=== PATIENT | female | born 1995 | race Hispanic/Latino ===

== ENCOUNTER 2019-07-12 02:03 | Emergency (ER) | payer OTHER ==
[~2019-07-12] VITALS: Ht 167.6 cm; Wt 72.6 kg
--- OUTSIDE RECORDS SUMMARY | 2019-07-12 02:07 | XMS REPORT ---
Author Author [facility] Address Unknown Phone Unavailable Care Team Providers Care Community Engagement Leader Name Role Phone Unavailable Unavailable Payers Payer Name Policy Type Policy Number Effective Date Expiration Date Problems This patient has no known problems. Allergies, Adverse Reactions, Alerts Allergy Name Allergy Type Status Severity Reaction(s) Onset Date Inactive Date Treating Clinician Comments No Known Allergies DA Active U 2019-02-24 00:00:00 Medications This patient has no known medications. Encounters Start Date/Time End Date/Time Encounter Type Admission Type Attending [facility] Facility Care Department Encounter ID 2017-02-03 00:00:00 2017-02-03 00:00:00 [id number] Results Test Description Test Time Test Comments Text Results Atomic Results Result Comments - XR ANKLE 3 + V LT 2019-02-24 21:46:00 FAX: Nolan Hudson [phone] [place]: St: REG FAX: Rachid Rios MD [phone] Name: JALEN GOLDBERG [facility] [place] : 1995 Age/S: 23/F [address] [place] [address] Unit #: [id number] Loc: [place] [address] Phys: Nolan Emerson [employer] SCI[employer]IST Acct: [id number] Dis Date: Status: REG ER PHONE #: [phone] Exam Date: 02/24/20192136 FAX #: [phone] Reason: left ankle pain EXAMS: CPT CODE: [id number] XR ANKLE 3 + V LT [id number] Clinical Indication: left ankle pain; Comparison: None FINDINGS: The 3 views of the left ankle show normal alignment without fractures or dislocations. The tibiotalar joint and talar dome are unremarkable. The subtalar joint is unremarkable. There is no ankle joint effusion. The ankle mortise is normal. The distal tibia-fibular alignment is unremarkable. There is no radiopaque foreign bodies. No soft tissue swelling is seen. If there is further concern, recommend follow-up radiographs or MRI for complete assessment. IMPRESSION: No fracture or dislocation of the left ankle. SL: LANVU-H at 2146 Reported and signed by: Dragan Skelton M.D. CC: Nolan Emerson NP; Rachid Goodman MD Technologist: GERHARD Muñiz RT(R) Trnscrd Date/Time/By: 02/24/2019 (2145) : By: JaiLNV Orig Print D/T: S: 02/24/2019 (2148) PAGE 1 Signed Report
[2019-07-12] MEDS ORDERED: LIDOCAINE HCL 1% LOCAL INJ 20 ML VIAL INJ STA (03:07)
[2019-07-12] MEDS ORDERED: MUPIROCIN 2% OINT 22 GM TUBE TOP ONE (03:15)
== END 2019-07-12 03:00 | disposition home or self-care (01) ==
LOC: FSED 02:03
DX: S61.411A Laceration without foreign body of right hand, initial encounter (principal); W26.8XXA Contact with other sharp object(s), not elsewhere classified, initial encounter; Y93.39 Activity, other involving climbing, rappelling and jumping off; Y92.007 Garden or yard of unspecified non-institutional (private) residence as the place of occurrence of the external cause
CPT/HCPCS: 99283

== ENCOUNTER 2019-11-26 13:43 | Emergency (ER) | payer OTHER ==
[~2019-11-26] VITALS: Ht 170.2 cm; Wt 77.1 kg
--- NOTE | 2019-11-26 14:44 | Emergency Department Note ---
History of Present Illnes History of Present Illness Chief Complaint: N/V/D History of Present Illness This is a 24 year old female, with no significant past medical history, who presents with onset of nausea, vomiting, and diarrhea. Patient states that she had 2 episodes of vomiting yesterday and one today. She states that when she tried to drink fluids earlier today, that she was unable to keep down. She states she's had 3 loose stools today, no blood or mucus. She has had nausea, but no abdominal pain, dysuria, frequency, urgency, fever, or chills. She denies any known sick contacts. Historian: Patient Arrival Mode: Car Tube Teller Required: No Onset (how long ago): day(s) (2) Location: Gen. Quality: nausea, vomiting, diarrhea Radiation: Reports non-radiation Severity: moderate Onset quality: sudden Duration (how long): day(s) (2) Timing of current episode: intermittent Progression: unchanged Chronicity: new Context: Denies recent illness, Denies trauma/injury Relieving factors: none Exacerbating factors: none Associated symptoms: Reports denies other symptoms, Reports nausea/vomiting; Denies chest pain, Denies cough, Denies fever/chills, Denies shortness of breath, Denies weakness Treatments prior to arrival: none Past Medical/Family History Physician Review I have reviewed the patient's past medical and family history. Any updates have been documented here. Past Medical History Recent Fever: No Clinical Suspicion of Infectio: No New/Unexplained Change in Ment: No Past Medical History: None Past Surgical History: None Other Surgery: ARM Social History Smoking Cessation: Current every day smoker Counseling Performed: Yes Alcohol Use: Occasional Any Illegal Drug Use: No TB Exposure/Symptoms: No Physically hurt or threatened: No Family History Family history of heart diseas: No Other Last Tetanus: UTD Any Pre-Existing Lines (PICC,: No Is patient up to date on immun: No Review of Systems Review of Systems Constitutional: Denies chills, Denies fever EENTM: Reports no symptoms Cardiovascular: Denies chest pain, Denies palpitations Respiratory: Denies cough, Denies pain with cough, Denies dyspnea on exertion Gastrointestinal: Reports no symptoms, Reports diarrhea, Reports nausea, Reports vomiting; Denies abdominal pain Genitourinary: Reports no symptoms Musculoskeletal: Denies back pain, Denies muscle pain Integumentary: Reports no symptoms Neurological: Reports no symptoms Psychological: Reports no symptoms Endocrine: Reports no symptoms Hematological/Lymphatic: Reports no symptoms Review of other systems: All other systems negative Physical Exam Related Data Allergies: Coded Allergies: No Known Allergies (Unverified , 11/15/10) Triage Vital Signs Vital Signs Date Time Temp Pulse Resp B/P (MAP) Pulse Ox O2 Delivery O2 Flow Rate FiO2 11/26/19 14:10 98.8 84 16 122/70 99 Vital signs reviewed: Yes Physical Exam CONSTITUTIONAL Constitutional: Present well-developed, Present well-nourished HENT HENT: Present normocephalic, Present atraumatic, Present oropharynx clear/moist, Present nose normal HENT L/R: Present left ext ear normal, Present right ext ear normal EYES Eyes: Reports PERRL, Reports conjunctivae normal NECK Neck: Present ROM normal; Absent cervical adenopathy PULMONARY Pulmonary: Present effort normal, Present breath sounds normal CARDIOVASCULAR Cardiovascular: Present regular rhythm, Present heart sounds normal, Present capillary refill normal, Present normal rate GASTROINTESTINAL Abdominal: Present soft, Present nontender, Present bowel sounds normal; Absent tender, Absent guarding GENITOURINARY Genitourinary: Present exam deferred SKIN Skin: Present warm, Present dry; Absent rash MUSCULOSKELETAL Musculoskeletal: Present ROM normal NEUROLOGICAL Neurological: Present alert, Present oriented x 3, Present no gross motor or sensory deficits PSYCHOLOGICAL Psychological: Present mood/affect normal, Present judgement normal Results Laboratory Laboratory CBC - nl; CMP - nl; UA - nl; Upt - Negative; Lab results reviewed: Yes Assessment & Plan Medical Decision Making MDM - Taking ondansetron ODT as needed for nausea and vomiting. - Drink small amounts of fluids frequently, especially water, Pedialyte, or G2 Gatorade. - Recommend a bland diet, avoiding fried, fast, fatty, and spicy foods, until symptoms completely resolve. - For the diarrhea, you may take Imodium AD, as needed. You may take up to 4 tablets in 24 hours. - Return to the emergency room, if your symptoms worsen, if you are unable to keep any fluids down, become weak, dizzy, or feel like you may pass out. - You may consider Covid 19 testing at one of the [facility] testing centers, if desired. Since her symptoms may be related to Covid 19, it is recommended that you self quarantine for 14 days, staying away from all others. Assessment & Plan Final Impression: (1) Acute viral syndrome (2) Vomiting and diarrhea Depart Disposition: HOME, SELF-CARE Last Vital Signs Date Time Temp Pulse Resp B/P (MAP) Pulse Ox O2 Delivery O2 Flow Rate FiO2 11/26/19 14:10 98.8 84 16 122/70 99 Home Meds No Active Prescriptions or Reported Meds Medications in the ED Patient discharged with Ondansetron ODT 4 mg, prn. # 20. Handwritten, as printer is working. ÓSCAR PORTILLO MD Nov 26, 2019 14:43
[2019-11-26] MEDS ORDERED: ONDANSETRON HCL 4 MG ORAL DISINTEGRATING TAB PO ONE (15:15)
[2019-11-26] MEDS ORDERED: ONDANSETRON HCL 4 MG ORAL DISINTEGRATING TAB ONE (15:30)
[2019-11-26] MEDS ORDERED: SODIUM CHLORIDE 0.9% 1000ML 1,000 ML IV SCH (16:00)
[2019-11-26] MEDS ORDERED: SODIUM CHLORIDE 0.9% 1000ML 1,000 ML ONE (16:10)
[2019-11-26 18:22] VITALS: BP 127/75
== END 2019-11-26 17:09 | disposition home or self-care (01) ==
LOC: FSED 14:10
DX: B34.9 Viral infection, unspecified (principal); R11.2 Nausea with vomiting, unspecified; R19.7 Diarrhea, unspecified
CPT/HCPCS: 80053; 81003; 85025; 99283; J7030; Q0162